=== PATIENT | male | born 1985 | race Two or more races ===

== ENCOUNTER 2019-04-05 07:31 | Emergency (ER) | payer OTHER ==
[~2019-04-05] VITALS: Ht 177.8 cm; Wt 83.9 kg
== END 2019-04-05 12:18 | disposition home or self-care (01) ==
LOC: ER 07:31
DX: B34.9 Viral infection, unspecified (principal)

== ENCOUNTER 2019-11-17 10:52 | Emergency (ER) | payer OTHER ==
[~2019-11-17] VITALS: Ht 177.8 cm; Wt 82.1 kg
== END 2019-11-17 15:30 | disposition home or self-care (01) ==
LOC: ER 10:52
DX: J06.9 Acute upper respiratory infection, unspecified (principal); J02.9 Acute pharyngitis, unspecified; Z03.818 Encounter for observation for suspected exposure to other biological agents ruled out

== ENCOUNTER 2021-11-05 21:00 | Emergency (ER) | payer OTHER ==
[~2021-11-05] VITALS: Ht 177.8 cm; Wt 86.2 kg
== END 2021-11-05 23:28 | disposition home or self-care (01) ==
LOC: ER 21:00
DX: R10.31 Right lower quadrant pain (principal); N20.0 Calculus of kidney; K76.0 Fatty (change of) liver, not elsewhere classified